=== PATIENT | female | born 1975 | race African-American/Black ===

== ENCOUNTER 2020-02-11 18:57 | Emergency (ER) | payer BC ==
[2020-02-11] MEDS ORDERED: Sodium Chloride 0.9% 2.5 ML Syringe FLUSH PRN (19:30)
[2020-02-11] MEDS ORDERED: Sodium Chloride 0.9% 10 ML Syringe FLUSH PRN (19:30)
[2020-02-11] MEDS ORDERED: Acetaminophen 325 MG Tab PO ONE (19:31)
--- NOTE | 2020-02-11 19:34 | EDM.PDOC ---
ED HPI GENERAL MEDICAL PROBLEM - General Chief Complaint: BASIN OPERATOR Problem Stated Complaint: 7 WKS SPOTTING Time Seen by Provider: 02/11/20 18:59 Source of Information: Reports: Patient History Limitations: Reports: No Limitations - History of Present Illness INITIAL COMMENTS - FREE TEXT/NARRATIVE: History of present illness: [Patient is 44-year-old female who presents with vaginal bleeding. She estimates that she is about 6 to 7 weeks . States that her home test was positive last week. She has 1 previous miscarriage and 1 previous live . States that she [place] today when she felt some lower abdominal cramping pain, she went to the bathroom and had some vaginal bleeding and what appeared to look like a raspberry with mucus around it that came out into the toilet bowl. She states she has lower abdominal cramps that feels similar to bad menstrual cramps. She denies history of ectopic. She denies any chest pain, shortness of breath, fever, chills. Has not seen her BASIN OPERATOR yet and has not had an ultrasound to confirm intrauterine .] Review of systems: As per history of present illness and below otherwise all systems reviewed and negative. Past medical history: As per history of present illness and as reviewed below otherwise noncontributory. Surgical history: As per history of present illness and as reviewed below otherwise noncontributory. Social history: No reported history of drug or alcohol abuse. Family history: As per history of present illness and as reviewed below otherwise noncontributory. Physical exam: General: Awake, alert, mild distress, A&O X3. HEENT: Atraumatic, normocephalic, pupils reactive, negative for conjunctival pallor or scleral icterus, mucous membranes moist, throat clear, neck supple, nontender, trachea midline. Lungs: Clear to auscultation, breath sounds equal bilaterally, chest nontender. Heart: RRR, normal S1S2, no JVD. Abdomen: Soft, nondistended, mild lower abdominal tenderness without rebound or guarding. Negative for costovertebral tenderness. Pelvis: Stable nontender. Genitourinary: Deferred. Rectal: Deferred. Extremities: Atraumatic, no edema, Neurovascular unremarkable. Neuro: Motor and sensory grossly intact throughout. Exam nonfocal. Diagnostics: [] Therapeutics: [] Impression: [] Plan: [] Definitive disposition and diagnosis as appropriate pending reevaluation and review of above. Abdomen Pain Score (Numeric/FACES): 10 - Related Data Allergies Allergy/AdvReac Type Severity Reaction Status Date / Time No Known Allergies Allergy Verified 02/11/20 19:37 Home Meds: Home Meds Pnv No.95/Ferrous Fum/Folic AC [ Multivitamin Tablet] 1 each PO DAILY 02/11/20 [History] ED ROS GENERAL - Review of Systems Review Of Systems: Comprehensive ROS is negative, except as noted in HPI. ED EXAM - Physical Exam Exam: See Below (See H&P) Course - Vital Signs Text/Narrative:: Patient feels some improvement in her cramps after getting Tylenol here. I discussed the results of her ultrasound with her. I told her it would be important for her to follow-up with her OB to schedule for a repeat ultrasound in 1 to 2 weeks, and to get a repeat quantitative hCG level drawn in 48 hours. I told her she can follow-up with her BASIN OPERATOR to set up for this as well, and if she is unable to get that set up via lab that she can come back to the ED to hav e the redraw as well. Return precautions were also provided should she develop new or worsening symptoms including intractable, severe worsening pain, or profuse vaginal bleeding. Based on the ultrasound I cannot definitively rule out an ectopic because we could not see the left ovary on the ultrasound. However, her pain is not unilateral, not severe, and she does have evidence of what appears to be a gestational sac versus a cyst in the lower uterine segment adjacent to the cervix. I informed her of these findings. Stressed the importance of follow-up for repeat lab work and ultrasound in the outpatient setting. She understands the plan and is agreeable with it. Vital signs stable. Nontoxic at the time of discharge. Last Recorded V/S: Last Vital Signs Temp 35.9 C L 02/11/20 19:30 Pulse 90 02/11/20 19:30 Resp 18 02/11/20 19:30 BP 114/59 L 02/11/20 19:30 Pulse Ox 98 02/11/20 19:30 - Orders/Labs/Meds Orders: Active Orders 24 hr Category Date Time Status Sodium Chloride 0.9% [Saline Flush] Med 02/11/20 19:30 Active 10 ml FLUSH ASDIRECTED PRN Sodium Chloride 0.9% [Saline Flush] Med 02/11/20 19:30 Active 2.5 ml FLUSH ASDIRECTED PRN Saline Lock Insert [OM.PC] Stat Oth 02/11/20 19:30 Ordered Medication Orders Sodium Chloride (Saline Flush) 10 ml FLUSH ASDIRECTED PRN PRN Reason: Keep Vein Open Sodium Chloride (Saline Flush) 2.5 ml FLUSH ASDIRECTED PRN PRN Reason: Keep Vein Open Labs: Laboratory Tests 02/11/20 02/11/20 Range/Units 19:45 19:45 WBC 9.13 (4.0-11.0) K/uL RBC 4.37 (4.30-5.90) M/uL Hgb 10.6 L (12.0-16.0) g/dL Hct 33.8 L (36.0-46.0) % MCV 77.3 L (80.0-98.0) fL MCH 24.3 L (27.0-32.0) pg MCHC 31.4 (31.0-37.0) g/dL RDW Std Deviation 44.9 (28.0-62.0) fl RDW Coeff of Monika 16 H (11.0-15.0) % Plt Count 379 (150-400) K/uL MPV 9.80 (7.40-12.00) fL Neut % (Auto) 52.5 (48.0-80.0) % Lymph % (Auto) 40.2 H (16.0-40.0) % Greene % (Auto) 6.4 (0.0-15.0) % Eos % (Auto) 0.8 (0.0-7.0) % Baso % (Auto) 0.1 (0.0-1.5) % Neut # (Auto) 4.8 (1.4-5.7) K/uL Lymph # (Auto) 3.7 H (0.6-2.4) K/uL Greene # (Auto) 0.6 (0.0-0.8) K/uL Eos # (Auto) 0.1 (0.0-0.7) K/uL Baso # (Auto) 0.0 (0.0-0.1) K/uL Nucleated RBC % 0.0 /100WBC Nucleated RBCs # 0 K/uL Sodium 135 L (136-145) mmol/L Potassium 3.9 (3.5-5.1) mmol/L Chloride 102 (98-107) mmol/L Carbon Dioxide 24.7 (21.0-32.0) mmol/L BUN 11 (7.0-18.0) mg/dL Creatinine 0.8 (0.6-1.0) mg/dL Est Cr Clr Drug Dosing 89.08 mL/min Estimated GFR (MDRD) > 60.0 ml/min Glucose 94 (74-106) mg/dL Calcium 8.6 (8.5-10.1) mg/dL Total Bilirubin 0.4 (0.2-1.0) mg/dL AST 13 L (15-37) IU/L ALT 13 L (14-63) IU/L Alkaline Phosphatase 89 (46-116) U/L Total Protein 7.6 (6.4-8.2) g/dL Albumin 3.5 (3.4-5.0) g/dL Globulin 4.1 H (2.6-4.0) g/dL Albumin/Globulin Ratio 0.9 (0.9-1.6) HCG, Quant 8776.0 mIU/mL Meds: Medications Generic Name Dose Route Start Last Admin Trade Name Freq PRN Reason Stop Dose Admin Sodium Chloride 10 ml 02/11/20 19:30 Saline Flush FLUSH ASDIRECTED PRN Keep Vein Open Sodium Chloride 2.5 ml 02/11/20 19:30 Saline Flush FLUSH ASDIRECTED PRN Keep Vein Open Discontinued Medications Generic Name Dose Route Start Last Admin Trade Name Freq PRN Reason Stop Dose Admin Acetaminophen 650 mg 02/11/20 19:31 02/11/20 20:11 Tylenol PO 02/11/20 19:32 650 mg NOW ONE Administration Departure - Departure Time of Disposition: 21:50 Disposition: Home, Self-Care 01 Condition: Good Clinical Impression: Threatened - Discharge Information Instructions: Vaginal Bleeding During , First Trimester Referrals: PCP,Not In Area [Primary Care Provider] - Forms: ED Department Discharge Additional Instructions: Follow-up with BASIN OPERATOR to schedule for repeat pelvic ultrasound in 1 to 2 weeks. Also follow-up with BASIN OPERATOR to schedule for repeat quantitative hCG level to be drawn in 48 hours. Return to the ED with any new or worsening symptoms. The following information is given to patients seen in the emergency department who are being discharged to home. This information is to outline your options for follow-up care. We provide all patients seen in our emergency department with a follow-up referral. The need for follow-up, as well as the timing and circumstances, are variable depending upon the specifics of your emergency department visit. If you don't have a primary care physician on staff, we will provide you with a referral. We always advise you to contact your personal physician following an emergency department visit to inform them of the circumstance of the visit and for follow-up with them and/or the need for any referrals to a consulting specialist. The emergency department will also refer you to a specialist when appropriate. This referral assures that you have the opportunity for follow-up care with a specialist. All of these measure are taken in an effort to provide you with optimal care, which includes your follow-up. Under all circumstances we always encourage you to contact your private physician who remains a resource for coordinating your care. When calling for follow-up care, please make the office aware that this follow-up is from your recent emergency room visit. If for any reason you are refused follow-up, please contact the [facility] Emergency Department at and asked to speak to the emergency department charge nurse. Sepsis Event Note (ED) - Focused Exam Vital Signs: Vital Signs Temp Pulse Resp BP Pulse Ox 02/11/20 19:30 35.9 C L 90 18 114/59 L 98 - My Orders Last 24 Hours: My Active Orders 02/11/20 19:30 Sodium Chloride 0.9% [Saline Flush] 10 ml FLUSH ASDIRECTED PRN Sodium Chloride 0.9% [Saline Flush] 2.5 ml FLUSH ASDIRECTED PRN Saline Lock Insert [OM.PC] Stat - Assessment/Plan Last 24 Hours: My Active Orders 02/11/20 19:30 Sodium Chloride 0.9% [Saline Flush] 10 ml FLUSH ASDIRECTED PRN Sodium Chloride 0.9% [Saline Flush] 2.5 ml FLUSH ASDIRECTED PRN Saline Lock Insert [OM.PC] Stat
[2020-02-11 20:31] LABS: BLOOD UREA NITROGEN,BUN 11 mg/dL (7.0-18.0); CARBON DIOXIDE,CO2 24.7 mmol/L (21.0-32.0); CHLORIDE,CL 102 mmol/L (98-107); GLUCOSE RANDOM 94 mg/dL (74-106); POTASSIUM,K 3.9 mmol/L (3.5-5.1); SODIUM,NA 135 mmol/L (136-145)
--- NOTE | 2020-02-11 21:37 | US ---
INDICATION: Vaginal bleeding, cramping, estimated 6-7 week COMPARISON: None TECHNIQUE: Multiple grayscale sonographic images of the pelvis. Scanning was performed transvaginally. FINDINGS: The uterus is not enlarged. There is normal thickness of the endometrial lining, which measures up to 4 mm. No gestational sac is seen within the endometrial cavity. A 1.3 cm fluid focus is noted in the posterior aspect of the lower uterine segment/cervix. This may represent an abnormal low lying gestational sac or possibly a cervical nabothian cyst. A 2.5 cm uterine fibroid is seen arising from the posterior body, likely subserosal in location. The right ovary measures 3.0 x 2.0 x 3.5 cm and demonstrates normal appearance. Intact vascular flow is demonstrated to the right ovary with color and spectral Doppler. The left ovary is not visualized. No significant free fluid is demonstrated in the pelvis. IMPRESSION: 1. A 1.3 cm fluid focus in the posterior aspect of the lower uterine segment/cervix. This may represent an abnormal low lying gestational sac or possibly a cervical nabothian cyst. Correlate with serial serum beta HCG values and follow-up ultrasound. 2. Small posterior midbody subserosal fibroid. 3. Normal right ovary. Nonvisualized left ovary. Dictated by Emma Jeffries MD @ Feb 11 2020 9:29PM Signed by Dr. Emma Jeffries @ Feb 11 2020 9:35PM
== END 2020-02-11 22:04 | disposition home or self-care (01) ==
LOC: MW.ED 18:57
DX: O20.0 Threatened abortion (principal); Z3A.01 Less than 8 weeks gestation of pregnancy
CPT/HCPCS: 36415; 76813; 80053; 84702; 85025; 99284; A9270; 76816-26